=== PATIENT | female | born 1955 | race Caucasian/White ===

== ENCOUNTER 2024-12-31 10:51 | Emergency (ER) | payer MEDICARE, SELFPAY ==
[2024-12-31 10:55] VITALS: BP 105/73
[2024-12-31 11:17] VITALS: BMI 21.3
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
[2024-12-31] MEDS: TYLENOL 1000 MG PO (11:47)
[2024-12-31] MEDS: ADACEL 0.5 ML IM (11:49)
== END 2024-12-31 15:31 | disposition home or self-care (01) ==
LOC: EMR 10:51
PROVIDERS: EMERGENCY PHYSICIAN Student in an Organized Health Care Education/Training Program; FAMILY PHYSICIAN Family Medicine
DX: S42.032A Displaced fracture of lateral end of left clavicle, initial encounter for closed fracture (principal); V11.0XXA Pedal cycle driver injured in collision with other pedal cycle in nontraffic accident, initial encounter; Y93.55 Activity, bike riding; Z23 Encounter for immunization
CPT/HCPCS: 99284; 90471; 70450; 73030; 90715